=== PATIENT | male | born 1950 | race Caucasian/White ===

== ENCOUNTER 2017-01-13 21:12 | Emergency (ER) | payer OTHER ==
[~2017-01-13] VITALS: Ht 180.3 cm; Wt 104.5 kg
[~2017-01-13 21:12] MED LIST: ALLOPURINOL100 MG PO; CETIRIZINE HCL10 M2 PO; CINNAMON500 MG PO; FIBER GUMMIES1 EACH PO; FISH OIL 1,2001 EAC4 PO; FLONASE16 G1 BOTH NARES; LO-DOSE ASPIRIN81 M1 PO; LOPRESSOR25 MG PO; MONTELUKAST SOD10 MG PO; MULTIVITAMIN1 EAC2 PO
[2017-01-13 22:00] LABS: HEMATOCRIT 46.3 % (38.0-50.0); MCH 33.8 PG (29.0-34.0); MCV 96.5 FL (86-99); MEAN PLAT.VOLUME 9.8 uM^3 (9.0-12.4); PLATELET COUNT 221 K/uL (156-360); RBC DIS.WIDTH-CV 12.8 % (11.8-14.6); RBC DIS.WIDTH-SD 45.2 % (39-53); WHITE BLOOD COUNT 9.6 K/uL (4.1-10.2)
[2017-01-13 22:12] LABS: CHLORIDE 107 mEq/L (99-109)
[2017-01-13 22:13] LABS: MAGNESIUM 2.4 mg/dL (1.3-2.7); POTASSIUM 4.1 mEq/L (3.7-5.4); SODIUM 140 mEq/L (136-147)
[2017-01-13 22:15] LABS: GLUCOSE 127 mg/dL (70-99)
[2017-01-13 22:16] LABS: ANION GAP 8 MEQ/L (2-14)
[2017-01-13 22:17] LABS: TOTAL BILIRUBIN 0.6 mg/dL (0.0-1.0)
[2017-01-13 22:18] LABS: ALKALINE PHOSPHATASE 65 IU/L (3-129)
[2017-01-13 22:19] LABS: GFR ESTIMATE (CALCULATED) 54 mL/min/
[2017-01-13 22:20] LABS: UREA NITROGEN (BUN) 21 mg/dL (9-23)
[2017-01-13 22:22] LABS: TROP-I INTERPRETATION NEGATIVE; TROPONIN-I 0.01 ng/mL (0.0-0.30)
[2017-01-13 23:15] VITALS: BP 113/65
== END 2017-01-13 23:20 | disposition home or self-care (01) ==
LOC: EME 21:12
PROVIDERS: Emergency Medicine
DX: R00.2 Palpitations (principal); I48.91 Unspecified atrial fibrillation; I25.2 Old myocardial infarction; Z87.891 Personal history of nicotine dependence
CPT/HCPCS: 71010; 80053; 83735; 84484; 85027; 93005